=== PATIENT | male | born 1970 | race Asian ===

== ENCOUNTER 2017-08-26 09:16 | Emergency (ER) | payer OTHER ==
[2017-08-26 09:20] VITALS: BP 112/82; PULSE 71; TEMP 97.6; BMI 27.2
--- NOTE | 2017-08-26 09:32 | PDOC ---
History of Present Illness <Edenilson Collins - Last Filed: 08/26/17 11:35> - General History Source: Patient Exam Limitations: No Limitations - History of Present Illness Initial Comments: The patient is a 47 year old male with no significant past medical history who presents to the emergency department complaining of left flank pain beginning 2 days ago. The patient describes the pain as a dull pain ranked 9/10 in severity , with no modifying factors. The patient reports associated symptoms of mild hematuria and urinary urgency, but denies frequency and dysuria. The patient denies chest pain, shortness of breath, headache, and dizziness. Denies fevers, chills, nausea, vomiting, diarrhea, and constipation. Allergies: NKA Social history: Patient admits to smoking cigarettes. No reported alcohol or drug use. <Hilary Angeles - Last Filed: 08/26/17 14:34> - General Chief Complaint: Pain Stated Complaint: flank BACK PAIN Time Seen by Provider: 08/26/17 09:32 Past History - Past Medical History COPD: No - Suicide/Smoking/Psychosocial Hx Smoking History: Current every day smoker Have you smoked in the past 12 months: Yes Number of Cigarettes Smoked Daily: 12 Information on smoking cessation initiated: Yes 'Breaking Loose' booklet given: 08/26/17 Hx Alcohol Use: No Drug/Substance Use Hx: No Substance Use Type: None <Edenilson Collins - Last Filed: 08/26/17 11:35> <Hilary Angeles - Last Filed: 08/26/17 14:34> - Past Medical History Allergies/Adverse Reactions: Allergies Allergy/AdvReac Type Severity Reaction Status Date / Time No Known Allergies Allergy Verified 08/26/17 09:17 Home Medications: Ambulatory Orders No Home Medications 0 dose .ROUTE UTDICT 06/06/13 Tamsulosin HCl [Flomax] 0.4 mg PO DAILY #7 cap.er.24h 08/26/17 Tramadol HCl 50 mg PO BID #6 tablet MDD 2 08/26/17 Review of Systems - Review of Systems Able to Perform ROS?: Yes Comments:: A complete review of 10 out of 10 review of systems is taken and is negative apart from what is previously mentioned below and in the HPI. <Hilary Angeles - Last Filed: 08/26/17 14:34> *Physical Exam - Vital Signs Last Vital Signs Temp Pulse Resp BP Pulse Ox 97.6 F 71 18 112/82 100 08/26/17 09:18 08/26/17 09:18 08/26/17 09:18 08/26/17 09:18 08/26/17 09:18 <Edenilson Collins - Last Filed: 08/26/17 11:35> - Vital Signs Last Vital Signs Temp Pulse Resp BP Pulse Ox 97.6 F 71 18 112/82 100 08/26/17 09:18 08/26/17 09:18 08/26/17 09:18 08/26/17 09:18 08/26/17 09:18 - Physical Exam Comments: Exam Vitals: Triage Vital signs reviewed General Appearance: no acute distress, well nourished well developed, Head: Atraumatic, normocephalic Neck: Supple;No Nuchal rigidity Chest Wall: Nontender Cardiac: Regular rate and rhythm, no murmurs, no rubs, no gallops, Lungs: Clear to auscultation bilateral, good air movement bilaterally, Abdomen: Soft, nondistended, normal bowel sounds, nontender to palpation Rectal: Exam deferred Extremities: Full range of motion to all extremities, no cyanosis, clubbing, or edema Skin: Warm and dry, no rashes or lesions, no petechiae Psych: normal mood, normal affect <Hilary Angeles - Last Filed: 08/26/17 14:34> ED Treatment Course - LABORATORY CBC & Chemistry Diagram: 08/26/17 10:15 08/26/17 10:15 <Edenilson Collins - Last Filed: 08/26/17 11:35> - LABORATORY CBC & Chemistry Diagram: 08/26/17 10:15 08/26/17 10:15 - ADDITIONAL ORDERS Additional order review: Laboratory Results 08/26/17 08/26/17 10:15 09:57 Sodium 139 Potassium 4.0 Chloride 106 Carbon Dioxide 24 Anion Gap 9 BUN 16 Creatinine 1.2 Creat Clearance w eGFR > 60 Random Glucose 101 Calcium 9.5 Magnesium Cancelled Total Bilirubin 0.6 Direct Bilirubin Cancelled AST 23 ALT 31 Alkaline Phosphatase 71 Total Protein 7.7 Albumin 3.9 Urine Color Dkyellow Urine Appearance Clear Urine pH 5.0 Ur Specific [place] 1.030 Urine Protein 1+ H Urine Glucose (UA) Negative Urine Ketones Trace H Urine Blood 2+ H Urine Nitrite Negative Urine Bilirubin Negative Urine Urobilinogen Negative Ur Leukocyte Esterase Negative Urine WBC (Auto) 3 Urine RBC (Auto) 25 Ur Epithelial Cells Rare Urine Mucus Moderate 08/26/17 10:15 RBC 5.08 MCV 91.8 MCHC 34.0 RDW 13.6 MPV 9.6 Neutrophils % 72.1 Lymphocytes % 16.0 Monocytes % 9.3 Eosinophils % 2.1 Basophils % 0.5 - Medications Given in the ED: ED Medications Discontinued Medications Generic Name Dose Route Start Last Admin Trade Name Felicitas PRN Reason Stop Dose Admin Ketorolac Tromethamine 30 mg 08/26/17 09:53 08/26/17 10:04 Toradol Injection - IVPUSH 08/26/17 09:54 30 mg ONCE ONE Administration Morphine Sulfate 4 mg 08/26/17 11:27 08/26/17 11:30 Morphine Injection - IVPUSH 08/26/17 11:28 4 mg ONCE ONE Administration Sodium Chloride 1,000 ml 08/26/17 09:54 08/26/17 10:04 Normal Saline - IV 08/26/17 09:55 1,000 ml ONCE ONE Administration <Hilary Angeles - Last Filed: 08/26/17 14:34> Medical Decision Making - Medical Decision Making 08/26/17 11:36 47 years old with left flank pain starting this evening and urinary urgency No past medical history, differential diagnosis includes uti, stone, nephritis, muscular skeletal discomfort We'll treat with Toradol hydrate CT abdomen and pelvis observe and reassess Reevaluation 1136 pain improved. We'll discharge with [facility] urology follow-up [place], the need for follow-up strict return instructions discussed with patient. <Edenilson Collins - Last Filed: 08/26/17 11:35> - Medical Decision Making The patient is a 47 year old male with no significant past medical history who presents to the emergency department complaining of left flank pain beginning 2 days ago. Plan: -CT Scan -Lab -Urine analysis <Hilary Angeles - Last Filed: 08/26/17 14:34> *DC/Admit/Observation/Transfer - Discharge Dispostion Admit: No <Edenilson Collins - Last Filed: 08/26/17 11:35> - Attestations Scribe Attestion: Documentation prepared by Hilary Angeles, acting as electromedical equipment technician for Edenilson Collins MD. <Hilary Angeles - Last Filed: 08/26/17 14:34> Diagnosis at time of Disposition: Renal colic - Discharge Dispostion Disposition: HOME Condition at time of disposition: Stable - Prescriptions Prescriptions: Tamsulosin HCl [Flomax] 0.4 mg PO DAILY #7 cap.er.24h Tramadol HCl 50 mg PO BID #6 tablet MDD 2 - Referrals Referrals: Gurpreet Faulkner MD [Primary Care Provider] - Raul Mays MD [Staff Physician] - - Patient Instructions Printed Discharge Instructions: Kidney Stones -- Adult Additional Instructions: Drink plenty of fluids. Take 2 tabs Aleve twice a day for the next 3 days. Take Flomax at night as prescribed. When urinating urinate through a urine strainer. Tramadol for more severe pain. Follow-up with urology this week. Return to the emergency department immediately for any fever vomiting uncontrollable pain or for any concerns. - Post Discharge Activity Forms/Work/School Notes: Back to Work
[2017-08-26] MEDS ORDERED: KETOROLAC TROMETHAMINE 30 MG/1 ML VIAL IVPUSH ONE (09:53)
[2017-08-26] MEDS ORDERED: SODIUM CHLORIDE 0.9% 1000 ML INFUS.BAG IV ONE (09:54)
[2017-08-26] MEDS ORDERED: KETOROLAC TROMETHAMINE 30 MG/1 ML VIAL ONE (09:59)
[2017-08-26 10:23] LABS: BASO % 0.5 % (0-2.0); EOS % 2.1 % (0-4.5); HEMATOCRIT 46.7 % (35.4-49); HEMOGLOBIN 15.9 GM/dL (11.7-16.9); MCH 31.2 pg (25.7-33.7); MEAN CELL VOLUME 91.8 fl (80-96); MEAN PLT VOLUME 9.6 fl (7.5-11.1); MONO % 9.3 % (3.8-10.2); NEUT % 72.1 % (42.8-82.8); PLATELET COUNT 186 K/MM3 (134-434); RBC 5.08 M/mm3 (4.00-5.60); RDW 13.6 % (11.9-15.9); WHITE BLOOD COUNT 9.2 K/mm3 (4.0-10.0)
[2017-08-26 10:31] LABS: URINE APPEARANCE CLEAR; URINE BILIRUBIN NEGATIVE (<2.0 mg/dL); URINE BLOOD 2+ (NEGATIVE); URINE COLOR DKYELLOW; URINE GLUCOSE (UA) NEGATIVE (NEGATIVE); URINE KETONE TRACE (NEGATIVE); URINE LEUK ESTERASE NEGATIVE (NEGATIVE); URINE NITRITE NEGATIVE (NEGATIVE); URINE UROBILINOGEN NEGATIVE mg/dL (0.2-1.0)
[2017-08-26 10:34] LABS: URINE PROTEIN 1+ (NEGATIVE)
[2017-08-26 10:37] LABS: EPI CELLS RARE /HPF (FEW); URINE MUCUS MODERATE
[2017-08-26 10:49] LABS: ALBUMIN 3.9 g/dl (3.4-5.0); ALK PHOS 71 U/L (45-117); ANION GAP 9 (8-16); BILIRUBIN,TOTAL 0.6 mg/dL (0.2-1.0); BLOOD UREA NITROGEN 16 mg/dL (7-18); CALCIUM 9.5 mg/dL (8.5-10.1); CHLORIDE 106 mmol/L (98-107); CO2 24 mmol/L (21-32); CREATININE 1.2 mg/dL (0.7-1.3); GLUCOSE,RANDOM 101 mg/dL (74-106); SGOT/AST 23 U/L (15-37); SGPT/ALT 31 U/L (12-78); SODIUM 139 mmol/L (136-145); TOT PROT 7.7 g/dl (6.4-8.2)
[2017-08-26] MEDS ORDERED: morphine CARPU-JECT 4 MG/1 ML DISP.SYRIN IVPUSH ONE (11:27)
[2017-08-26] MEDS ORDERED: morphine SULFATE 4 MG/ML VIAL ONE (11:34)
== END 2017-08-26 12:05 | disposition home or self-care (01) ==
LOC: JER 09:16
PROC: 3E033NZ Introduction of Analgesics, Hypnotics, Sedatives into Peripheral Vein, Percutaneous Approach (ICD-10-PCS; principal; 2017-08-26)
PROC: 3E0333Z Introduction of Anti-inflammatory into Peripheral Vein, Percutaneous Approach (ICD-10-PCS; 2017-08-26)
DX: N13.2 Hydronephrosis with renal and ureteral calculous obstruction (principal); F17.210 Nicotine dependence, cigarettes, uncomplicated
CPT/HCPCS: 36415; 74176-TC; 80053; 81003; 81015; 85025; 87086; 96374; 96375; 99283-25; J7030

== ENCOUNTER 2019-04-26 19:21 | Emergency (ER) | payer OTHER ==
[2019-04-26 19:37] VITALS: BMI 28.4
--- NOTE | 2019-04-26 20:21 | PDOC ---
History of Present Illness - General Chief Complaint: Headache Stated Complaint: HYPERTENSION/HEADACHE Time Seen by Provider: 04/26/19 20:21 History Source: Patient Exam Limitations: No Limitations - History of Present Illness Initial Comments: 04/26/19 20:21 Kermit Gallegos is an otherwise healthy 48M presenting with new onset headache and concern over high blood pressure. Patient began having normal headache at 4PM today, has no history of chronic PHAN , normally resolves without any medications or with one Advil. Today took one triptan medication he obtained from his sister in law for headache, then took a nap for 2 hours. When he woke up, the headache was much worse in intensity. Checked his BP and was 135/85. Got concerned about HTN, took his [id number]' s Losartan 50mg. Rechecked BP found to be 148/90. Rechecked BP again 10 minutes later and found to be 159/96. Worried about BP and PHAN, went to ED. Denies vision changes, dizziness, chest pain, SOB, palpitations, abd pain, urinary sx, N/V/C/D, fever/chills. No history of migraines, cardiac disease, HTN , or lung disease. No known allergies. Past History - Past Medical History Allergies/Adverse Reactions: Allergies Allergy/AdvReac Type Severity Reaction Status Date / Time No Known Allergies Allergy Verified 08/30/17 09:48 Home Medications: Ambulatory Orders Tamsulosin HCl [Flomax] 0.4 mg PO DAILY #7 cap.er.24h 08/26/17 COPD: No Kidney Stones: Yes - Psycho Social/Smoking Cessation Hx Smoking History: Former smoker Have you smoked in the past 12 months: No Number of Cigarettes Smoked Daily: 10 Information on smoking cessation initiated: Yes 'Breaking Loose' booklet given: 08/30/17 Hx Alcohol Use: No Drug/Substance Use Hx: No Substance Use Type: None Review of Systems - Review of Systems Able to Perform ROS?: Yes Constitutional: Yes: Symptoms Reported HEENTM: No: Symptoms Reported Respiratory: No: Symptoms reported Cardiac (ROS): No: Symptoms Reported ABD/GI: No: Symptoms Reported : No: Symptoms Reported Musculoskeletal: No: Symptoms Reported Integumentary: No: Symptoms Reported Neurological: Yes: Headache Endocrine: No: Symptoms Reported Hematologic/Lymphatic: No: Symptoms Reported All Other Systems: Reviewed and Negative *Physical Exam - Vital Signs Last Vital Signs Temp Pulse Resp BP Pulse Ox 97.5 F L 83 18 145/85 99 04/26/19 19:30 04/26/19 19:30 04/26/19 19:30 04/26/19 19:30 04/26/19 19:30 - Physical Exam General Appearance: Yes: Nourished, Appropriately Dressed. No: Apparent Distress HEENT: positive: EOMI, YFN, Normal Voice, Symmetrical, Pharynx Normal. negative: Scleral Icterus (R), Scleral Icterus (L), Muffled/Hoarse voice Neck: positive: Normal Thyroid, Supple. negative: Tender, Rigid, Lymphadenopathy (R), Lymphadenopathy (L) Respiratory/Chest: positive: Lungs Clear, Normal Breath Sounds. negative: Chest Tender, Respiratory Distress, Accessory Muscle Use, Crackles, Rales, Rhonchi, Stridor, Wheezing Cardiovascular: positive: Regular Rhythm, Regular Rate. negative: Murmur Gastrointestinal/Abdominal: positive: Normal Bowel Sounds, Flat, Soft. negative : Tender, Organomegaly, Guarding, Rebound Musculoskeletal: positive: Normal Inspection. negative: CVA Tenderness, Vertebral Tenderness Extremity: positive: Normal Capillary Refill, Normal Inspection, Normal Range of Motion. 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 negative: Normal Response Medical Decision Making - Medical Decision Making 04/26/19 20:21 Kermit Gallegos is an otherwise healthy 48M presenting with new onset headache and concern over high blood pressure. Patient advised that taking other people's medicines is dangerous, and that his headache is not concerning with regards to his blood pressure. Advised that all the blood pressures he took were not that high, and that stress and worry about BP will naturally cause elevations. Patient was not hypertensive before headache , this is not a sudden onset worst headache, and has no neurological deficits, neuro/cardiac history. Giving patient 1L NS and 4mg IV Reglan for PHAN. Will re-evaluate, but likely dispo home with PMD f/u. 04/26/19 22:34 Patient feels better. Discussed not taking other people's medications, how to check BP. Stable for discharge home with PMD f/u. Discharge - Discharge Information Problems reviewed: Yes Clinical Impression/Diagnosis: Headache Qualifiers: Headache type: unspecified Headache chronicity pattern: acute headache Intractability: not intractable Qualified Code(s): R51 - Headache Condition: Stable Disposition: HOME - Admission No - Follow up/Referral - Patient Discharge Instructions Patient Printed Discharge Instructions: DI for Headache Additional Instructions: Today you were evaluated for a headache and high blood pressure. As discussed, your blood pressure is not that high. Your headache is a normal headache that has improved with medications and IV fluids. In the future, stick to Advil for headaches, and do not take other people's medications, as they may have adverse side effects that you cannot predict. A normal blood pressure is about 120/80, and anything over 160/90 is very high and may need further evaluation. Please see your primary doctor in the next 3 days for further care. If you experience fever, vision changes, worsening headache, chest pain, shortness of breath, abdominal pain, dizziness, or any other new or concerning symptoms, please return to the emergency room. - Post Discharge Activity
[2019-04-26] MEDS ORDERED: METOCLOPRAMIDE HCL INJECTION 10 MG/2 ML VIAL IVPB ONE (21:07)
[2019-04-26] MEDS ORDERED: SODIUM CHLORIDE 0.9% 500 ML INFUS.BAG IV ONE (21:07)
[2019-04-26] MEDS ORDERED: METOCLOPRAMIDE HCL INJECTION 10 MG/2 ML VIAL ONE (21:30)
--- NOTE | 2019-04-26 21:53 | PDOC ---
Documentation entered by Chay Kaur SCRIBE, acting as scribe for Merari Carter MD. Merari Carter MD: This documentation has been prepared by the Natasha peryera Nirvannie, SCRIBE, under my direction and personally reviewed by me in its entirety. I confirm that the documentation accurately reflects all work, treatment, procedures, and medical decision making performed by me. Attending Attestation - Resident Resident Name: Kana Damico (\) - ED Attending Attestation I have performed the following: I have examined & evaluated the patient, The case was reviewed & discussed with the resident, I agree w/resident's findings & plan - HPI HPI: 04/26/19 21:51 48-year-old male presents with mild frontal headache that started today and concern for his blood pressure Head normocephalic atraumatic Eyes pupils equal reactive to light and accommodation extraocular muscles intact Neck no JVD or bruits, supple Lungs are clear to auscultation CVS regular rate rhythm S1-S2 Abdomen is soft, nontender Skin is warm and dry Neuro alert and oriented x3, ambulating with ease, no ataxia, motor strength 5 out of 5 bilaterally, no drift, sensation intact Psych appropriate - Physicial Exam PE: 04/26/19 22:54 Well-nourished well-developed 48-year-old male resting on the gurney in no acute distress Head normocephalic atraumatic Eyes pupils equal react light and accommodation, no nystagmus Neck no bruits no JVDs, supple Lungs clear to auscultation bilaterally CVS is regular rate and rhythm S1-S2 no rubs or murmurs or gallops appreciated Abdomen is soft, nontender No flank pain Neuro alert and oriented x3, motor strength 5 out of 5 bilaterally, no drift, ambulating with ease - Medical Decision Making 04/26/19 21:52 This patient checks his blood pressure couple times a month using his father-in- law's blood pressure cuff Today he developed a headache and so then took his blood pressure and systolic was 135 which is higher than his normal systolic and he became very concerned He took a family members triptan for the headache and then took his father's losartan for the blood pressure Patient cautioned against using other peoples prescription medications He has no focal neuro deficits He has no nausea or vomiting or fever or chills or photophobia or ataxia Pressure now is 135/80 04/26/19 22:52 -his headache has resolved and pt wants to go home
[2019-04-26 23:07] VITALS: BP 116/78; PULSE 79; TEMP 97.8
== END 2019-04-26 23:18 | disposition home or self-care (01) ==
LOC: JER 19:21
PROC: 3E033GC Introduction of Other Therapeutic Substance into Peripheral Vein, Percutaneous Approach (ICD-10-PCS; principal; 2019-04-26)
DX: R51 Headache (principal); N20.0 Calculus of kidney; Z87.891 Personal history of nicotine dependence
CPT/HCPCS: 99282-25

== ENCOUNTER 2023-05-04 22:15 | Emergency (ER) | payer OTHER ==
[2023-05-04 22:35] VITALS: BP 136/57; PULSE 116; RESP 18; TEMP 103; BMI 28.7
[2023-05-05] MEDS ORDERED: IBUPROFEN 400 MG TABLET (FP) PO ONE ×2 (00:15→00:29)
[2023-05-05] MEDS ORDERED: BENZOCAINE/MENTH/CETYLPYRD CL 1 EACH LOZENGE MM PRN (00:59)
[2023-05-05] MEDS ORDERED: DEXAMETHASONE 4 MG TABLET (FP) PO ONE (01:00)
[2023-05-05] MEDS ORDERED: DEXAMETHASONE 4 MG TABLET (FP) ONE (01:13)
== END 2023-05-05 01:27 | disposition home or self-care (01) ==
LOC: JER 22:15
DX: J10.1 Influenza due to other identified influenza virus with other respiratory manifestations (principal); R05.9 Cough, unspecified; R50.9 Fever, unspecified; M79.10 Myalgia, unspecified site; Z20.822 Contact with and (suspected) exposure to COVID-19
CPT/HCPCS: 0241U-QW; 71046-TC-FY; 93005; 93010; 99285-25

== ENCOUNTER 2023-05-06 09:47 | Inpatient (IN) | payer OTHER ==
[2023-05-06] MEDS ORDERED: SODIUM CHLORIDE 0.9% 500 ML INFUS.BAG IV ONE (11:21)
[2023-05-06 12:14] LABS: BASO % 0.3 % (0-2.0); EOS % 0.1 % (0-4.5); HEMATOCRIT 42.5 % (35.4-49); HEMOGLOBIN 14.1 GM/dL (11.7-16.9); LYMPH % 9.7 % (8-40); MCH 29.8 pg (25.7-33.7); MCHC 33.3 g/dl (32.0-35.9); MEAN CELL VOLUME 89.5 fl (80-96); MEAN PLT VOLUME 10.7 fl (7.5-11.1); MONO % 10.3 % (3.8-10.2); NEUT % 79.6 % (42.8-82.8); PLATELET COUNT 148 10^3/uL (134-434); RBC 4.75 M/mm3 (4.00-5.60); RDW 13.3 % (11.9-15.9); WHITE BLOOD COUNT 5.9 K/mm3 (4.0-10.0)
[2023-05-06 12:15] LABS: EPI CELLS 18 /uL (0-25.1); HYALINE CASTS 2 /uL (0-3.1); PH,URINE 5.5 (5.0-8.0); URINE APPEARANCE CLEAR; URINE BACTERIA 5 /uL (0-1359); URINE BILIRUBIN NEGATIVE (NEGATIVE); URINE COLOR DK YELLOW; URINE GLUCOSE (UA) NEGATIVE (NEGATIVE); URINE KETONE TRACE (NEGATIVE); URINE LEUK ESTERASE NEGATIVE (NEGATIVE); URINE NITRITE NEGATIVE (NEGATIVE); URINE PROTEIN 1+ (NEGATIVE); URINE RBC 10 /uL (0-23.9); URINE WBC 16 /uL (0-25.8); VENOUS BASE EXCESS -2.8 mmol/L (-2-2); VENOUS O2 SATURATION 87.6 % (70-80); VENOUS PCO2 34.3 mmHg (38-52); VENOUS PH 7.406 (7.310-7.410)
[2023-05-06 12:20] LABS: INR 1.5 (0.83-1.09); PROTHROMBIN TIME (PATIENT) 17.3 SEC (9.7-13.0)
[2023-05-06 12:23] LABS: ACTIVATED PTT 28.7 SECONDS (25.2-36.5)
[2023-05-06] MEDS ORDERED: ACETAMINOPHEN 1000 MG/100 ML BAG IVPB ONE (12:40)
[2023-05-06] MEDS ORDERED: KETOROLAC TROMETHAMINE 15 MG/ML VIAL IVPUSH ONE (12:42)
[2023-05-06 12:43] LABS: CHLORIDE 104 mmol/L (98-107); POTASSIUM 3.7 mmol/L (3.5-5.1); SODIUM 137 mmol/L (136-145)
[2023-05-06 12:45] LABS: CALCIUM 8.5 mg/dL (8.5-10.1); GLUCOSE,RANDOM 94 mg/dL (74-106)
[2023-05-06 12:46] LABS: ALBUMIN 3.2 g/dl (3.4-5.0); ANION GAP 7 mmol/L (4-13); BLOOD UREA NITROGEN 16.1 mg/dL (7-18); CO2 26 mmol/L (21-32)
[2023-05-06 12:49] LABS: CREATININE 1.4 mg/dL (0.55-1.3); SGOT/AST 32 U/L (15-37); SGPT/ALT 25 U/L (13-61)
[2023-05-06] MEDS ORDERED: KETOROLAC TROMETHAMINE 30 MG/1 ML VIAL ONE (12:49)
[2023-05-06] MEDS ORDERED: KETOROLAC TROMETHAMINE 15 MG/ML VIAL ONE (12:49)
[2023-05-06] MEDS ORDERED: ACETAMINOPHEN INJECTION 100 ML IVPB ONE ×2 (12:49→20:39)
[2023-05-06 12:50] LABS: BILIRUBIN,TOTAL 0.5 mg/dL (0.2-1); TOT PROT 6.3 g/dl (6.4-8.2)
[2023-05-06 12:51] LABS: ALK PHOS 54 U/L (45-117)
[2023-05-06] MEDS ORDERED: ASPIRIN 81 MG CHEWABLE TABLETS PO ONE (13:02)
[2023-05-06] MEDS ORDERED: ASPIRIN COATED 81 MG TABLET.EC ONE (13:11)
[2023-05-06] MEDS ORDERED: OSELTAMIVIR PHOSPHATE 75 MG CAPSULE PO ONE (13:12)
[2023-05-06] MEDS ORDERED: OSELTAMIVIR PHOSPHATE 75 MG CAPSULE ONE (13:15)
[2023-05-06] MEDS: DEXTROSE 5%-0.45% SALINE 1,000 ML IV SCH (20:06)
[2023-05-06] MEDS: ACETAMINOPHEN 1000 MG/100 ML BAG IVPB PRN (20:53)
[2023-05-06] MEDS: OSELTAMIVIR PHOSPHATE 75 MG CAPSULE PO SCH (23:56)
[2023-05-07 08:34] LABS: BASO % 0.4 % (0-2.0); HEMATOCRIT 40.5 % (35.4-49); HEMOGLOBIN 13.8 GM/dL (11.7-16.9); LYMPH % 16.8 % (8-40); MEAN CELL VOLUME 91.1 fl (80-96); MEAN PLT VOLUME 10.9 fl (7.5-11.1); NEUT % 72.8 % (42.8-82.8); PLATELET COUNT 130 10^3/uL (134-434); RBC 4.45 M/mm3 (4.00-5.60); RDW 13.1 % (11.9-15.9); WHITE BLOOD COUNT 3.8 K/mm3 (4.0-10.0)
[2023-05-07 08:44] LABS: POTASSIUM 3.6 mmol/L (3.5-5.1)
[2023-05-07] MEDS ORDERED: ACETAMINOPHEN INJECTION 100 ML IVPB ONE (08:45)
[2023-05-07] MEDS: ACETAMINOPHEN 1000 MG/100 ML BAG IVPB PRN (08:48)
[2023-05-07 08:52] LABS: CREATININE 1.3 mg/dL (0.55-1.3)
[2023-05-07 08:54] LABS: BILIRUBIN,TOTAL 0.4 mg/dL (0.2-1); TOT PROT 5.7 g/dl (6.4-8.2)
[2023-05-07 08:56] LABS: ALBUMIN 2.9 g/dl (3.4-5.0); BLOOD UREA NITROGEN 14.6 mg/dL (7-18)
[2023-05-07] MEDS: TAMSULOSIN HCL 0.4 MG CAP PO SCH (09:29)
[2023-05-07] MEDS: ASPIRIN COATED 81 MG TABLET.EC PO SCH (09:29)
[2023-05-07] MEDS: OSELTAMIVIR PHOSPHATE 75 MG CAPSULE PO SCH ×2 (09:30→22:47)
[2023-05-07] MEDS: ENOXAPARIN NA (PORCINE) 40 MG/0.4 ML DISP.SYRIN SQ SCH (09:30)
[2023-05-07] MEDS: DEXTROSE 5%-0.45% SALINE 1,000 ML IV SCH (17:13)
[2023-05-07] MEDS ORDERED: MELATONIN 5 MG TABLETS PO PRN (23:32)
[2023-05-07] MEDS ORDERED: ACETAMINOPHEN 1000 MG/100 ML BAG IVPB ONE (23:45)
[2023-05-08 00:55] VITALS: BMI 29.0
[2023-05-08 05:02] VITALS: RESP 18
[2023-05-08 07:47] LABS: BASO % 0.3 % (0-2.0); EOS % 0.1 % (0-4.5); HEMATOCRIT 41.5 % (35.4-49); HEMOGLOBIN 14.1 GM/dL (11.7-16.9); LYMPH % 32.5 % (8-40); MCH 30.6 pg (25.7-33.7); MCHC 33.9 g/dl (32.0-35.9); MEAN CELL VOLUME 90.2 fl (80-96); MEAN PLT VOLUME 10.6 fl (7.5-11.1); MONO % 12.8 % (3.8-10.2); NEUT % 54.3 % (42.8-82.8); PLATELET COUNT 125 10^3/uL (134-434); RDW 12.8 % (11.9-15.9); WHITE BLOOD COUNT 3.5 K/mm3 (4.0-10.0)
[2023-05-08 07:56] LABS: POTASSIUM 3.6 mmol/L (3.5-5.1)
[2023-05-08 08:04] LABS: ALBUMIN 2.7 g/dl (3.4-5.0); BLOOD UREA NITROGEN 7.6 mg/dL (7-18); CALCIUM 8.4 mg/dL (8.5-10.1)
[2023-05-08 08:07] LABS: CREATININE 1.1 mg/dL (0.55-1.3)
[2023-05-08 08:08] LABS: TOT PROT 5.7 g/dl (6.4-8.2)
[2023-05-08 08:09] LABS: BILIRUBIN,TOTAL 0.4 mg/dL (0.2-1)
[2023-05-08] MEDS: TAMSULOSIN HCL 0.4 MG CAP PO SCH (08:27)
[2023-05-08 08:58] VITALS: PULSE 80
[2023-05-08] MEDS ORDERED: BENZONATATE 100 MG CAPSULE PO PRN (09:25)
[2023-05-08] MEDS ORDERED: ACETAMINOPHEN 325 MG TABLET (FP) PO PRN (09:25)
[2023-05-08] MEDS: ASPIRIN COATED 81 MG TABLET.EC PO SCH (10:43)
[2023-05-08] MEDS: ENOXAPARIN NA (PORCINE) 40 MG/0.4 ML DISP.SYRIN SQ SCH (10:44)
[2023-05-08] MEDS: OSELTAMIVIR PHOSPHATE 75 MG CAPSULE PO SCH (11:23)
[2023-05-08 15:36] VITALS: BP 104/49; TEMP 98
== END 2023-05-08 17:00 | disposition home or self-care (01) | DRG 113 ==
LOC: JER 09:47 → JERFT 09:47 → JERBED 13:11 → OBSVTOIN 17:31 → J4W 05-07 23:16
PROVIDERS: ADMIT Internal Medicine; ATTEND Internal Medicine
DX: J11.1 Influenza due to unidentified influenza virus with other respiratory manifestations (principal); I24.89 Other forms of acute ischemic heart disease; F17.210 Nicotine dependence, cigarettes, uncomplicated; N40.0 Benign prostatic hyperplasia without lower urinary tract symptoms; I10 Essential (primary) hypertension; F41.9 Anxiety disorder, unspecified; R79.89 Other specified abnormal findings of blood chemistry; R50.9 Fever, unspecified; R05.9 Cough, unspecified
CPT/HCPCS: 0241U-QW; 36415; 71046-TC-FY; 80053; 81003; 82553; 82803; 83605; 84484; 85025; 85610; 85730; 86850; 86900; 86901; 87040; 87086; 93005; 93010; 93306-TC; 99285-25; G0378; J0131

== ENCOUNTER 2023-05-13 21:52 | Emergency (ER) | payer OTHER ==
[2023-05-13 21:59] VITALS: BMI 28.7
[2023-05-13] MEDS ORDERED: FAMOTIDINE 20 MG/50 ML IVPB 20 MG/50 ML MG IVPB ONE ×2 (22:41→22:50)
[2023-05-13] MEDS ORDERED: MAG HYDROX/AL HYDROX/SIMETH -MYLANTA- ORAL SUSPENSION PO ONE (22:41)
[2023-05-13] MEDS ORDERED: SODIUM CHLORIDE 0.9% 500 ML INFUS.BAG IV ONE (22:41)
[2023-05-13] MEDS ORDERED: ACETAMINOPHEN 1000 MG/100 ML BAG IVPB ONE (22:41)
[2023-05-13] MEDS ORDERED: ACETAMINOPHEN INJECTION 100 ML IVPB ONE (22:50)
[2023-05-13] MEDS ORDERED: MAG HYDROX/AL HYDROX/SIMETH 30 ML UNIT-DOSE CUP ONE (22:50)
[2023-05-13 23:05] LABS: BASO % 0.9 % (0-2.0); EOS % 2.2 % (0-4.5); HEMATOCRIT 44.4 % (35.4-49); HEMOGLOBIN 15.2 GM/dL (11.7-16.9); MCH 30.6 pg (25.7-33.7); MCHC 34.3 g/dl (32.0-35.9); MEAN CELL VOLUME 89.1 fl (80-96); MEAN PLT VOLUME 9.3 fl (7.5-11.1); MONO % 11.7 % (3.8-10.2); NEUT % 52.2 % (42.8-82.8); PLATELET COUNT 232 10^3/uL (134-434); RBC 4.98 M/mm3 (4.00-5.60); RDW 12.9 % (11.9-15.9); WHITE BLOOD COUNT 4.9 K/mm3 (4.0-10.0)
[2023-05-13 23:46] LABS: ALBUMIN 3.1 g/dl (3.4-5.0); BILIRUBIN,TOTAL 0.5 mg/dL (0.2-1); BLOOD UREA NITROGEN 15.9 mg/dL (7-18); CALCIUM 8.7 mg/dL (8.5-10.1); CREATININE 0.8 mg/dL (0.55-1.3); POTASSIUM 4.2 mmol/L (3.5-5.1); TOT PROT 6.6 g/dl (6.4-8.2)
[2023-05-14 06:36] VITALS: BP 117/73; PULSE 58; RESP 16; TEMP 97.5
[2023-05-14] MEDS ORDERED: AZITHROMYCIN 500 MG TABLET PO ONE (07:50)
[2023-05-14] MEDS ORDERED: AZITHROMYCIN 500 MG TABLET ONE (08:04)
== END 2023-05-14 08:16 | disposition home or self-care (01) ==
LOC: JER 21:52
PROC: 3E033GC Introduction of Other Therapeutic Substance into Peripheral Vein, Percutaneous Approach (ICD-10-PCS; principal; 2023-05-13)
PROC: 3E033NZ Introduction of Analgesics, Hypnotics, Sedatives into Peripheral Vein, Percutaneous Approach (ICD-10-PCS; 2023-05-13)
DX: R11.0 Nausea (principal); R10.9 Unspecified abdominal pain; R63.0 Anorexia; J10.1 Influenza due to other identified influenza virus with other respiratory manifestations; Z20.822 Contact with and (suspected) exposure to COVID-19
CPT/HCPCS: 0241U-QW; 36415; 74177-TC; 80053; 83605; 83690; 84484; 85025; 93005; 93010; 99285-25